=== PATIENT | female | born 1995 | race Caucasian/White ===

== ENCOUNTER 2017-11-12 22:11 | Emergency (ER) | payer MEDICAID ==
[~2017-11-12] VITALS: Ht 165.1 cm; Wt 54.5 kg
[~2017-11-12 22:11] MED LIST: NO HOME MEDS
[2017-11-12 22:23] VITALS: BP 120/82
== END 2017-11-13 01:12 | disposition home or self-care (01) ==
LOC: ER 22:12
DX: S01.81XA Laceration without foreign body of other part of head, initial encounter (principal); F15.90 Other stimulant use, unspecified, uncomplicated; W50.0XXA Accidental hit or strike by another person, initial encounter; Y93.89 Activity, other specified; Y92.89 Other specified places as the place of occurrence of the external cause; Y99.9 Unspecified external cause status
CPT/HCPCS: 12011; 99283

== ENCOUNTER 2019-05-21 21:00 | Emergency (ER) | payer MEDICAID ==
[~2019-05-21] VITALS: Ht 165.1 cm; Wt 63.0 kg
[2019-05-21 21:46] VITALS: BP 137/85
--- NOTE | 2019-05-21 23:41 | NUR ---
pt is back in ER lobby
== END 2019-05-22 00:55 | disposition left against medical advice (07) ==
LOC: ER 21:02
DX: L02.214 Cutaneous abscess of groin (principal); L02.416 Cutaneous abscess of left lower limb; Z53.21 Procedure and treatment not carried out due to patient leaving prior to being seen by health care provider

== ENCOUNTER 2019-06-29 19:20 | Emergency (ER) | payer MEDICAID ==
[~2019-06-29] VITALS: Ht 165.1 cm; Wt 68.2 kg
[2019-06-29] MEDS ORDERED: LIDOcaine 1% W/epiNEPHrine 1:200,000 10ml vial IJ ONE (19:30)
[2019-06-29] MEDS ORDERED: TETanus/Pertussis (Acell)/Diphther VAC/PF (Tdap-Adult) 0.5ml syringe IMVAC ONE (19:30)
[2019-06-29] MEDS ORDERED: SULF1TAB49 PO (19:59)
[2019-06-29 20:15] VITALS: BP 128/75
== END 2019-06-29 20:16 | disposition home or self-care (01) ==
LOC: ER 19:20
DX: L02.211 Cutaneous abscess of abdominal wall (principal); F15.90 Other stimulant use, unspecified, uncomplicated; Z87.442 Personal history of urinary calculi; Z79.2 Long term (current) use of antibiotics
CPT/HCPCS: 10060; 90471; 90715; 99283

== ENCOUNTER 2020-02-14 12:04 | Emergency (ER) | payer MEDICAID ==
[~2020-02-14] VITALS: Ht 165.1 cm; Wt 63.6 kg
[2020-02-14 12:06] VITALS: BP 127/75
[2020-02-14] MEDS ORDERED: SULF1TAB49 PO (12:38)
[2020-02-14] MEDS ORDERED: LACT1CAP65 PO (12:38)
[2020-02-14] MEDS ORDERED: CEPH500C5 PO (12:38)
[2020-02-14 13:18] LABS: CLARITY,URINE SLIGHTLY CLOUDY (Clear); COLOR,URINE YELLOW (Yellow); GLUCOSE, URINE NEGATIVE (Neg); KETONES,URINE NEGATIVE (Neg); LEUKOCYTE ESTERASE ,URINE NEGATIVE (Neg); NITRITES, URINE POSITIVE (Neg); OCCULT BLOOD,URINE NEGATIVE (Neg); PROTEIN,URINE NEGATIVE (Neg)
[2020-02-14 13:19] LABS: URINE HCG NEGATIVE (NEG)
--- NOTE | 2020-02-14 13:20 | NUR ---
I&D attempted, however pt was in restroom at that time.
[2020-02-14 13:28] LABS: UA COLLECTION TYPE CLN CATCH MIDSTREAM
[2020-02-14 13:31] LABS: BACTERIA,URINE 4+ /HPF (Neg); MUCUS STRANDS FEW /LPF (Neg); RBC,URINE NONE SEEN /HPF (0-2); SQUAMOUS EPITHELIAL CELL,UR MANY /LPF (FEW); WBC,URINE 0-4 /HPF (0-4)
--- NOTE | 2020-02-14 13:44 | NUR ---
Pt still in restroom. Knocked on door, and pt states she is "ok". Will check on her again within five minutes.
== END 2020-02-14 14:50 | disposition home or self-care (01) ==
LOC: ER 12:04
DX: L02.413 Cutaneous abscess of right upper limb (principal); L02.31 Cutaneous abscess of buttock; F15.10 Other stimulant abuse, uncomplicated; Z87.442 Personal history of urinary calculi
CPT/HCPCS: 10061; 81001; 81025; 99284

== ENCOUNTER 2020-03-13 20:40 | Emergency (ER) | payer MEDICAID ==
[~2020-03-13] VITALS: Ht 165.1 cm; Wt 72.8 kg
[~2020-03-13 20:40] MED LIST changes: +CEPH500C5 PO; +LACT1CAP65 PO
[2020-03-13 20:52] VITALS: BP 141/86
[2020-03-13] MEDS ORDERED: sulfamethoxazole/trimethoprim DS (800/160mg) tablet PO ONE (23:40)
[2020-03-13] MEDS ORDERED: levoFLOXACIN 500mg tablet PO ONE (23:40)
[2020-03-13] MEDS ORDERED: SULF1TAB49 PO (23:40)
[2020-03-13] MEDS ORDERED: CEFU500T66 PO (23:40)
== END 2020-03-13 23:55 | disposition home or self-care (01) ==
LOC: ER 20:40
DX: L03.114 Cellulitis of left upper limb (principal); F17.200 Nicotine dependence, unspecified, uncomplicated; Z87.442 Personal history of urinary calculi; Z86.15 Personal history of latent tuberculosis infection; Z79.2 Long term (current) use of antibiotics; Z79.899 Other long term (current) drug therapy
CPT/HCPCS: 99283

== ENCOUNTER 2023-07-21 04:49 | Emergency (ER) | payer MEDICAID ==
[~2023-07-21] VITALS: Ht 165.1 cm; Wt 74.4 kg
[~2023-07-21 04:49] MED LIST changes: +CEFU500T66 PO; -CEPH500C5 PO
[2023-07-21 05:06] VITALS: BP 110/62; PULSE 128; RESP 16; TEMP 99.8; O2SAT 99
[2023-07-21 05:52] LABS: URINE HCG POSITIVE (NEG)
[2023-07-21 05:53] LABS: BILIRUBIN,URINE NEGATIVE (Neg); CLARITY,URINE CLOUDY (Clear); COLOR,URINE YELLOW (Yellow); GLUCOSE, URINE NEGATIVE (Neg); KETONES,URINE NEGATIVE (Neg); LEUKOCYTE ESTERASE ,URINE TRACE (Neg); NITRITES, URINE POSITIVE (Neg); OCCULT BLOOD,URINE NEGATIVE (Neg); PH,URINE 6.5 (4.8-8.0); PROTEIN,URINE NEGATIVE (Neg)
[2023-07-21 05:54] LABS: UA COLLECTION TYPE CLN CATCH MIDSTREAM
[2023-07-21 06:00] LABS: BACTERIA,URINE 3+ /HPF (Neg); MUCUS STRANDS FEW /LPF (Neg); SQUAMOUS EPITHELIAL CELL,UR MODERATE /LPF (FEW)
[2023-07-21 06:01] LABS: RBC,URINE 0-2 /HPF (0-2); WBC,URINE 20-30 /HPF (0-4)
[2023-07-21] MEDS ORDERED: CEPH-585 PO (20:03)
== END 2023-07-21 07:24 | disposition left against medical advice (07) ==
LOC: ER 04:49
DX: R30.0 Dysuria (principal); Z53.21 Procedure and treatment not carried out due to patient leaving prior to being seen by health care provider
CPT/HCPCS: 81001; 81025; 87077; 87088; 87186

== ENCOUNTER 2023-07-21 17:46 | Emergency (ER) | payer MEDICAID ==
[~2023-07-21] VITALS: Ht 165.1 cm; Wt 79.3 kg
[2023-07-21 18:16] VITALS: PULSE 111; TEMP 98.8
[2023-07-21] MEDS ORDERED: ketorolac trometh inj. 60 MG/2 ML VIAL IM ONE (18:35)
[2023-07-21 18:50] LABS: BILIRUBIN,URINE NEGATIVE (Neg); CLARITY,URINE CLOUDY (Clear); COLOR,URINE YELLOW (Yellow); GLUCOSE, URINE NEGATIVE (Neg); KETONES,URINE NEGATIVE (Neg); LEUKOCYTE ESTERASE ,URINE NEGATIVE (Neg); NITRITES, URINE POSITIVE (Neg); OCCULT BLOOD,URINE NEGATIVE (Neg); PROTEIN,URINE NEGATIVE (Neg)
[2023-07-21 18:51] LABS: URINE HCG POSITIVE (NEG)
[2023-07-21 18:54] LABS: UA COLLECTION TYPE CLN CATCH MIDSTREAM
[2023-07-21 18:59] LABS: SQUAMOUS EPITHELIAL CELL,UR MANY /LPF (FEW)
[2023-07-21 19:00] LABS: BACTERIA,URINE 3+ /HPF (Neg); RBC,URINE 0-2 /HPF (0-2); TRANSITIONAL EPI CELLS,URINE FEW /HPF
[2023-07-21] MEDS: ketorolac trometh. 30mg/ml inj. IM ONE (19:13)
[2023-07-21 19:25] VITALS: BP 126/87; RESP 16; O2SAT 98
[2023-07-21] MEDS ORDERED: CEPH-585 PO (20:03)
== END 2023-07-21 20:09 | disposition home or self-care (01) ==
LOC: ER 17:46
DX: N39.0 Urinary tract infection, site not specified (principal); H66.91 Otitis media, unspecified, right ear; Z86.14 Personal history of Methicillin resistant Staphylococcus aureus infection; Z87.440 Personal history of urinary (tract) infections; Z79.899 Other long term (current) drug therapy
CPT/HCPCS: 81001; 81025; 99283

== ENCOUNTER 2024-03-21 11:31 | Emergency (ER) | payer MEDICAID ==
[~2024-03-21] VITALS: Ht 165.1 cm; Wt 77.4 kg
[2024-03-21] MEDS: acetaminophen 325mg tablet PO ONE (11:38)
[2024-03-21 12:02] LABS: BASOPHILS # (AUTO) 0.1 X10'3 (0-0.2); BASOPHILS % (AUTO) 0.3 % (0-1); EOSINOPHILS # (AUTO) 0.1 X10'3 (0-0.9); EOSINOPHILS % (AUTO) 0.4 % (0-6); HEMOGLOBIN 12.3 g/dl (12.0-16.0); LYMPHOCYTES # (AUTO) 1.3 X10'3 (1.1-4.8); LYMPHOCYTES % (AUTO) 7.4 % (21-51); MEAN CORPUSCULAR HEMOGLOBIN 26.6 PG (27.0-31.0); MEAN CORPUSCULAR HGB CONC 33.1 g/dL (33.0-36.5); MEAN CORPUSCULAR VOLUME 80.5 FL (78-98); MEAN PLATELET VOLUME 7.1 FL (7.4-10.4); MONOCYTES # (AUTO) 0.4 X10'3 (0-0.9); MONOCYTES % (AUTO) 2.1 % (2-12); NEUTROPHILS # (AUTO) 16.3 X10'3 (1.8-7.7); NEUTROPHILS % (AUTO) 89.8 % (42-75); PLATELET COUNT 342 X10'3 (140-440); RED CELL DISTRIBUTION WIDTH 14.7 % (11.5-14.5); WHITE BLOOD COUNT 18.2 X10'3 (4.5-11.0)
[2024-03-21 12:18] VITALS: BP 121/64; PULSE 106; TEMP 101; O2SAT 100
[2024-03-21 13:23] LABS: ALBUMIN 3.3 G/DL (3.4-5.0); CALCIUM 8.7 MG/DL (8.5-10.1); TOTAL CARBON DIOXIDE 26.6 MMOL/L (24-32)
[2024-03-21 13:24] LABS: BILIRUBIN,URINE NEGATIVE (Neg); COLOR,URINE YELLOW (Yellow); GLUCOSE, URINE NEGATIVE (Neg); KETONES,URINE NEGATIVE (Neg); LEUKOCYTE ESTERASE ,URINE SMALL (Neg); NITRITES, URINE POSITIVE (Neg); OCCULT BLOOD,URINE NEGATIVE (Neg); PH,URINE 5.5 (4.8-8.0); PROTEIN,URINE NEGATIVE (Neg); UROBILINOGEN,URINE 0.2 E.U/dL (0.2-1.0)
[2024-03-21 13:27] LABS: ANION GAP 8 (8-16); BLOOD UREA NITROGEN 17 MG/DL (7-18); BUN/CREATININE RATIO 19.1 (10.0-20.0); CHLORIDE 104 MMOL/L (99-107); CREATININE 0.89 MG/DL (0.40-0.90); GLUCOSE 83 MG/DL (70-104); SODIUM 139 MMOL/L (135-145); eCRCL 86 ML/MIN; eGFR 77 ML/MIN
[2024-03-21] MEDS: clindamycin 150mg capsule PO ONE (13:31)
[2024-03-21 13:32] LABS: UA COLLECTION TYPE NON-SPECIFIED
[2024-03-21 13:33] LABS: CLARITY,URINE CLOUDY (Clear)
[2024-03-21 13:34] LABS: WBC,URINE 30-50 /HPF (0-4)
[2024-03-21 13:35] VITALS: RESP 19
[2024-03-21 13:35] LABS: BACTERIA,URINE 4+ /HPF (Neg); MUCUS STRANDS MANY /LPF (Neg); RBC,URINE 0-2 /HPF (0-2); SQUAMOUS EPITHELIAL CELL,UR MANY /LPF (FEW); WBC CLUMPS,URINE FEW /HPF (NEGATIVE)
[2024-03-21] MEDS ORDERED: SULF1TAB49 PO (13:52)
[2024-03-21] MEDS ORDERED: CEPH-585 PO (13:52)
[2024-03-21 14:02] LABS: URINE AMPHETAMINE SCREEN POSITIVE (Neg); URINE BARBITUATE SCREEN NEGATIVE (Neg); URINE BENZODIAZEPINES SCREEN NEGATIVE (Neg); URINE CANNABINOID SCREEN NEGATIVE (Neg); URINE COCAINE SCREEN NEGATIVE (Neg); URINE METHADONE SCREEN NEGATIVE (Neg); URINE OPIATE SCREEN NEGATIVE (Neg); URINE PHENCYCLIDINE SCREEN NEGATIVE (Neg)
== END 2024-03-21 14:44 | disposition left against medical advice (07) ==
LOC: ER 11:31
DX: A41.9 Sepsis, unspecified organism (principal); L03.115 Cellulitis of right lower limb; F12.90 Cannabis use, unspecified, uncomplicated; F11.20 Opioid dependence, uncomplicated; Z87.442 Personal history of urinary calculi
CPT/HCPCS: 36415; 71045; 73630; 80048; 80305; 81001; 83605; 84145; 85025; 87040; 99284